=== PATIENT | male | born 1980 | race Native Hawaiian/Other Pacific Islander ===

== ENCOUNTER 2020-10-19 20:18 | Emergency (ER) | payer OTHER ==
[~2020-10-19] VITALS: Ht 180.3 cm; Wt 79.4 kg
[2020-10-19 20:42] LABS: PLATELET COUNT 329 K/uL (142-355)
[2020-10-19 21:09] LABS: POTASSIUM 4.6 mmol/L (3.6-5.2)
[2020-10-19 21:30] VITALS: BP 142/96; TEMP 97.7
== END 2020-10-19 21:30 | disposition home or self-care (01) ==
LOC: ED 20:18
PROVIDERS: Hospitalist
DX: K29.70 Gastritis, unspecified, without bleeding (principal)
CPT/HCPCS: 36415; 80053; 80320; 81000; 83690; 85027; 93005; 99283